=== PATIENT | female | born 1990 | race African-American/Black ===

== ENCOUNTER 2017-05-19 11:28 | Emergency (ER) | payer SELFPAY ==
[2017-05-19 11:47] VITALS: BP 126/81; BMI 34.7
--- NOTE | 2017-05-19 12:22 | DR.GENAD ---
HPI - PCP Primary Care Physician: NFD - Complaint/Symptoms Chief Complaint Doctors Comments: Patient states that she fell off the porch on last night, injured her nose. There was no LOC. Denies physicial trauma. Chief Complaint:: PT C/O STEPPING DOWN OFF OF PORCH AND SHE FELL AND HER NOSE IS SWOLLEN,, AND SHE WANTS TO SEE IF IT IS BROKEN..PT DENIES ANY LOC,, PT NOTED SOME BLEEDING LAST NIGHT BUT , NOT TODAY, - Source History Provided: Patient - Mode of Arrival Mode of Arrival: Ambulatory - Timing Onset of Chief Complaint: 05/18/17 PMH - PMH Past Medical History: No Past Medical History: Anxiety, Asthma, Headaches Past Surgical History: Yes Surgical History: Cholecystectomy - Family History History of Family Medical Conditions: Yes Family Medical History: Hypertension - Social History Does patient currently use any type of tobacco product: No Have you used tobacco products in the last 12 months: No Type of Tobacco Use: None Does any household member use tobacco: No Alcohol Use: None Do you use any recreational Drugs:: No Lives With: Family Lives Where: Home - infectious screening In the last 2 months have you had wt loss of >10#?: NO Have you had fever, night sweats or hemotysis?: No Have you traveled outside the country in the last 6 months?: No Isolation: Standard ROS - Review of Systems Eyes: Other (medial hematoma of left sclera) ENTM: No Symptoms Reported Respiratoy: No Symptoms Reported Cardiovascular: No Symptoms Reported Gastrointestinal/Abdominal: No Symptoms Reported Genitourinary: No Symptoms Reported Neurological: No Symptoms Reported Musculoskeletal: See HPI, Other (Left cheek swollen, nasal bridge superficial abrasion) Integumentary: No Symptoms Reported Hematologic/Lymphatic: No Symptoms Reported Endocrine: No Symptoms Reported Psychiatric: No Symptoms Reported All Other Systems: Reviewed and Negative PE - Vital Signs Vitals: Temperature 97.2 F Pulse Rate 88 Respiratory Rate 18 Blood Pressure [Right Arm] 133/75 Blood Pressure [Left Arm] 124/61 Blood Pressure 126/81 O2 Sat by Pulse Oximetry 98 - General General Appearance: Alert, In No Apparent Distress - Head Head Exam: Atraumatic - Eyes Eye exam: Normal Appearance, PERRL, EOMI - ENT ENT Exam: Normal Exam External Ear Exam: Normal External Inspection, Mastoid Tenderness (left), Other (nasal bridge abrasion) TM/Canal Exam: Bilateral Normal Nose Exam: Abrasion (transverse nasal bridge.) Mouth Exam: Other (TMJ tenderness, decreaxed ROM) Throat Exam: Normal Inspection - Neck Neck Exam: Normal Inspection - Chest Chest Inspection: Normal Inspection - Respiratory Respiratory Exam: Normal Lung Sounds Bilat Respiratory Exam: Bilateral Clear to Auscultation - Cardiovascular Cardiovascular Exam: Regular Rate - Abdominal Exam Abdominal Exam: Normal Inspection Abdominal Tenderness: negative: RUQ, RLQ, LUQ, LLQ, Epigastrium, Suprapubic, Diffuse, Mild, Moderate, Severe, Other - Extremities Extremities Exam: Normal Inspection - Back Back Exam: Normal Inspection - Neurologic Neurological Exam: Alert, Oriented X3, CN II-XII Intact - Psychiatric Psychiatric Exam: Normal Affect - Skin Skin Exam: Warm, Dry, Intact Course - Reevaluation 1st: Unchanged ROR - XRAY XRAY Interpreted by: Radiologist (Slightly depressed fracture of the tip of the nasal bone) - Diagnosis Discharge Problem: Subconjunctival hemorrhage of left eye Nasal bone fx-closed Qualifiers: Encounter type: initial encounter Qualified Code(s): S02.2XXA - Fracture of nasal bones, initial encounter for closed fracture - Discharge Plan Condition: Stable - Follow ups/Referrals Follow ups/Referrals: NFD,None [Primary Care Provider] - 3 days - Instructions
--- NOTE | 2017-05-19 12:49 | CT ---
HISTORY: Injury, fall, facial trauma Study: Maxillofacial CT without contrast Comparison: None Technique: Axial noncontrast images with coronal and sagittal reformats. Dose reduction procedures we re used with mA/kv adjusted for body size. Findings: There is no evidence for mandibular, maxillofacial, or orbital fracture. There is a slightly depresse d fracture of the tip of the nasal bones. The nasal spine is intact. The sinuses are clear. There is rightward nasal septal deviation. The nasal septum appears intact. IMPRESSION: Slightly depressed fracture of the tip of the nasal bone Reported By:
== END 2017-05-19 13:01 | disposition home or self-care (01) ==
LOC: ER 12:01
DX: S02.2XXA Fracture of nasal bones, initial encounter for closed fracture (principal); H11.32 Conjunctival hemorrhage, left eye; W19.XXXA Unspecified fall, initial encounter; Y92.89 Other specified places as the place of occurrence of the external cause
CPT/HCPCS: 70486; 99282; 99283

== ENCOUNTER 2022-11-10 06:16 | Inpatient (IN) ==
[2022-11-10] MEDS ORDERED: LR 1,000 ML IV 1,000 ML IV ONE ×2 (06:39→08:00)
[2022-11-10] MEDS ORDERED: ANCEF VIAL 1 GRAM IVP ONE (06:41)
[2022-11-10] MEDS ORDERED: D5 1/2 NS 1,000 ML 1,000 ML IV SCH (06:41)
[2022-11-10] MEDS ORDERED: D5 1/2 NS 1,000 mL + PITOCIN 20 UNITS/L IV 20 UNITS/1,000 ML BAG IV ONE (07:15)
[2022-11-10] MEDS ORDERED: PEPCID 20 MG VIAL ONE (07:16)
[2022-11-10] MEDS ORDERED: ZOFRAN INJ 4 MG VIAL ONE (07:16)
[2022-11-10] MEDS ORDERED: ULTANE GAS IN ONE (07:20)
[2022-11-10] MEDS ORDERED: MARCAINE SPINAL ONE (07:21)
[2022-11-10] MEDS ORDERED: DILAUDID INJ ONE ×3 (07:21→09:43)
[2022-11-10] MEDS ORDERED: XYLOCAINE 2 % (PLAIN) ONE (07:24)
[2022-11-10] MEDS ORDERED: PRECEDEX INJ VIAL IVP ONE (07:24)
[2022-11-10] MEDS ORDERED: NS IRRIGATION* 500 ML IR ONE (07:30)
[2022-11-10] MEDS ORDERED: DIPRIVAN VIAL 20 ML ONE (08:08)
[2022-11-10] MEDS ORDERED: QUELICIN (OR ANECTINE) ONE (08:08)
[2022-11-10] MEDS ORDERED: ZEMURON 100 MG VIAL ONE (08:26)
[2022-11-10] MEDS ORDERED: PITOCIN ONE (08:26)
[2022-11-10] MEDS ORDERED: BRIDION ONE (09:17)
[2022-11-10] MEDS ORDERED: HEMABATE IM ONE (09:22)
[2022-11-10] MEDS ORDERED: TORADOL 30 MG VIAL ONE (09:26)
[2022-11-10] MEDS: DILAUDID INJ IVP PRN ×4 (09:29→09:49)
[2022-11-10] MEDS ORDERED: BARHEMSYS INJ IVP PRN (09:36)
[2022-11-10] MEDS ORDERED: BENADRYL INJ 50 MG VIAL IVP PRN (09:36)
[2022-11-10] MEDS ORDERED: REGLAN INJ 10 MG VIAL IVP PRN (09:36)
[2022-11-10] MEDS ORDERED: ZOFRAN INJ 4 MG VIAL IVP PRN (09:36)
[2022-11-10] MEDS ORDERED: MYLICON TAB 80 MG CHEW PO PRN (10:15)
[2022-11-10] MEDS ORDERED: D5 1/2 NS 1,000 ML 1,000 ML with PITOCIN 20 UNITS IV SCH ×2 (10:15)
[2022-11-10] MEDS ORDERED: VENTOLIN or PROAIR HFA IN PRN (10:15)
[2022-11-10] MEDS ORDERED: PROVENTIL NEB TX 0.083% 2.5MG/ 3ML NEB PRN (10:17)
[2022-11-10] MEDS: MORPHINE SULFATE PCA 30 MG IVP PRN ×2 (13:58→23:15)
[2022-11-10] MEDS ORDERED: ANCEF VIAL 1 GRAM IVP SCH (15:00)
[2022-11-10] MEDS: ANCEF VIAL 1 GRAM 1 G in NS 100 ML IV 100 ML IV SCH ×2 (15:40→21:07)
[2022-11-10] MEDS: TORADOL 30 MG VIAL IVP PRN ×2 (15:46→21:59)
[2022-11-11 05:23] LABS: HEMATOCRIT 24.2 % (36.0-47.0)
[2022-11-11 05:27] LABS: HEMOGLOBIN 8.4 g/dL (12.0-16.0)
[2022-11-11] MEDS: ANCEF VIAL 1 GRAM 1 G in NS 100 ML IV 100 ML IV SCH ×3 (05:48→21:47)
--- NOTE | 2022-11-11 08:16 | DR.PROGNOT ---
HOSPITAL PROGRESS NOTE Progress Note for Day of: Progress Note Date: 11/11/22 Chief Complaint Chief Complaint: mild pain Rt axilla . no active drainage . h/o recurrent Hidradenitis Rt axilla . no DM. Past Medical Family Social History Past Med/Fam/Surg Hx: No changes since H&P Allergies: Allergies No Known Drug Allergies Allergy (Verified 11/23/19 14:19) Vital Signs Vital Signs: Temperature 99.8 F Pulse Rate [Left Brachial] 108 Pulse Rate 87 Respiratory Rate 20 Blood Pressure [Right Arm] 129/75 Blood Pressure [Left Arm] 131/69 Blood Pressure 127/67 O2 Sat by Pulse Oximetry 95 Physical Exam Skin: Other (Rt axillary hidradenitis .) Speech Pattern: Clear and Appropriate Laboratory and Diagnostics Result Diagrams: 11/11/22 05:00 Labs: Laboratory Hgb 8.4 g/dL (12.0-16.0) L 11/11/22 05:00 Hct 24.2 % (36.0-47.0) L 11/11/22 05:00 Assessment and Plan 1: Hydradenitis suppurativa RT axilla . in IV ABT now , to I&D the abscess later on . needs prolonged oral antibiotics and office F/U
[2022-11-11] MEDS: COLACE CAP 100 MG PO SCH ×2 (08:31→20:36)
[2022-11-11] MEDS: PROTONIX TAB 40 MG PO SCH (08:31)
[2022-11-11] MEDS: PERCOCET TAB 5/325 MG PO PRN ×3 (08:32→20:36)
[2022-11-11] MEDS: PRENATAL PLUS PO SCH (08:32)
[2022-11-11] MEDS ORDERED: ADACEL or BOOSTRIX TDaP VACCINE IM ONE (08:36)
[2022-11-11] MEDS: ADACEL or BOOSTRIX TDaP VACCINE IM ONE ×3 (08:40→08:44)
[2022-11-11] MEDS: BACTROBAN TOPICAL OINT TOP SCH ×2 (13:30→21:46)
[2022-11-11] MEDS: MOTRIN TAB 800 MG PO PRN (14:29)
[2022-11-11] MEDS ORDERED: ROBITUSSIN DM PO PRN (16:00)
[2022-11-11] MEDS: FERROUS GLUCONATE PO SCH (16:06)
[2022-11-12] MEDS: ANCEF VIAL 1 GRAM 1 G in NS 100 ML IV 100 ML IV SCH (05:31)
[2022-11-12] MEDS: BACTROBAN TOPICAL OINT TOP SCH (05:32)
[2022-11-12] MEDS: FERROUS GLUCONATE PO SCH (06:24)
[2022-11-12] MEDS: PERCOCET TAB 5/325 MG PO PRN (07:24)
[2022-11-12 07:44] VITALS: BP 138/76; PULSE 91; TEMP 97.8; O2SAT 98
[2022-11-12] MEDS: PROTONIX TAB 40 MG PO SCH (08:13)
[2022-11-12] MEDS: COLACE CAP 100 MG PO SCH (08:14)
[2022-11-12] MEDS: PRENATAL PLUS PO SCH (08:14)
[2022-11-12] MEDS: MOTRIN TAB 800 MG PO PRN (09:05)
== END 2022-11-12 11:20 | disposition home or self-care (01) | DRG 785 ==
LOC: LD 06:16 → MED/SURG 10:11
PROVIDERS: ADMIT Specialist; ATTEND Specialist
DX: O34.211 Maternal care for low transverse scar from previous cesarean delivery; D58.2 Other hemoglobinopathies; L73.2 Hidradenitis suppurativa; Z87.09 Personal history of other diseases of the respiratory system; N85.8 Other specified noninflammatory disorders of uterus; Z30.2 Encounter for sterilization; O99.613 Diseases of the digestive system complicating pregnancy, third trimester; Z01.812 Encounter for preprocedural laboratory examination; Z3A.39 39 weeks gestation of pregnancy; Z37.0 Single live birth